=== PATIENT | male | born 1965 | race Caucasian/White ===

== ENCOUNTER 2017-03-21 13:52 | Emergency (ER) | payer OTHER ==
[~2017-03-21] VITALS: Ht 185.4 cm; Wt 102.1 kg
[~2017-03-21 13:52] MED LIST: CITALOPRAM HBR10 MG PO; CYCLOBENZAPRINE5 MG PO; METHOTREXATE2.5 MG PO; REMICADE100 MG/10 IV
[2017-03-21] MEDS ORDERED: LOSARTAN POTASS50 MG PO (14:01)
[2017-03-21] MEDS ORDERED: LIPITOR20 MG (14:02)
--- NOTE | 2017-03-21 14:48 | EKG ---
[facility] [address] [facility] [place] [address] Signed Normal sinus rhythm Normal ECG No previous ECGs available Confirmed by CHARISMA BREWER MD ([id number]) on 03/21/2017 2:48:45 PM Electronically Signed By: CHARISMA BREWER MD 03/21/17 1448 PATIENT NAME: DEVIN SWEENEY Electrocardiogram DATE OF : 63 PHYSICIAN: CHARISMA BREWER MD REPORT #: [id number] REPORT IS CONFIDENTIAL AND NOT TO BE RELEASED WITHOUT AUTHORIZATION
== END 2017-03-21 17:19 | disposition home or self-care (01) ==
LOC: ED 13:52
DX: R07.89 Other chest pain (principal); Z79.899 Other long term (current) drug therapy
CPT/HCPCS: 71020; 80053; 84484; 85025; 93005; 93010; 99284

== ENCOUNTER 2022-05-11 07:28 | Day surgery (SDC) | payer OTHER ==
[~2022-05-11] VITALS: Ht 185.4 cm; Wt 107.0 kg
[~2022-05-11 07:28] MED LIST changes: +CARVEDILOL6.25 MG PO; +CENTRUM ADULTS1 EACH PO; +CYMBALTA60 MG PO; +LIPITOR20 MG PO; +LOSARTAN POTASS50 MG PO; +XELJANZ XR11 MG PO
--- NOTE | 2022-05-11 09:58 | NUR ---
05/11/22 0958 Sheets,Chastity 0945 PT ARRIVED TO PACU ON 2L VIA NC, PT DENIES CONCERNS AND PLAN OF CARE DISCUSSED. 0954 PT RESTING WITH EYES CLOSED AND SMALL AMOUNT OF SNORING NOTED.
--- NOTE | 2022-05-12 07:22 | OR ---
[facility] [address] [place], [place] [address] Signed DATE OF OPERATION: 05/11/2022 SURGEON: Chichi Alba MD PREOPERATIVE DIAGNOSIS: Father with colon cancer in his early 60s and of the colon cancer age 66. POSTOPERATIVE DIAGNOSES: 1. Minimal sigmoid diverticulosis. 2. Minimal internal anal skin tags. PROCEDURE: Colonoscopy without biopsy. ESTIMATED BLOOD LOSS: None. INDICATIONS: Quincy is a 56-year-old gentleman, who happens to be a retired here in [place], [place]. He is returning for a followup colonoscopy. His father had developed colon cancer in his early 60s. His father actually of colon cancer at age of 66. Quincy came for his 1st colonoscopy back in 2008 at the age of 43. This was unremarkable. He had done well with Versed and fentanyl. We had asked him to return at age 49. He said life got busy and the COVID pandemic came through and he is just now getting back for his followup colonoscopy. He said he is feeling great now that he is retired. He actually goes to our local athletic club every day. He said he has no lower GI complaints. In the office, I gave Quincy a pamphlet on colonoscopy. We had reviewed the nature of that test. There is risk including, but not limited to gas bloating, crampy abdominal pain, bleeding, perforation requiring surgery, and missed diagnosis. We also reviewed the written instructions for a bowel prep line by line. He has done well with IV Versed and fentanyl in the past. He had expressed understanding and wished to proceed. PROCEDURE NOTE: Quincy was taken into our endoscopy suite and placed in the left lateral decubitus position. He was given IV sedation with 8 mg of Versed and 125 mcg of fentanyl. A digital rectal exam was performed and this was unremarkable. He really had no external hemorrhoids. He had good sphincter tone. There were no masses. We did not specifically evaluate his prostate gland. The adult colonoscope was then introduced and advanced all around into the cecum under direct visualization of the camera. Quincy takes Electronically Signed By: CHICHI ALBA MD 05/12/22 0722 PATIENT NAME: DEVIN SWEENEY OPERATIVE REPORT DATE OF : 63 REPORT #: [id number] PHYSICIAN: CHICHI ALBA MD PCP: MARKO INIGUEZ MD REPORT IS CONFIDENTIAL AND NOT TO BE RELEASED WITHOUT AUTHORIZATION [facility] [address], [place] [address] Signed carvedilol and we could see that his heart rate dropped into the 30s and came back up into the 60s several times. A couple of times during that procedure, he had blood pressures as high as in the 180s. He seemed to cover nicely when we took a pause during that procedure. We made it around to the cecum really without much difficulty. His prep was quite excellent. We could easily see the appendiceal orifice and the ileocecal valve. The scope was then slowly withdrawn. He had a few diverticula in the sigmoid colon. They were minimal to moderate in size, few in number, and scattered about. There were no polyps. The rectum was unremarkable. Upon retroflexion of the scope, we can see that he just has a couple of small internal anal skin tags. After this, the gas was suctioned out and the colonoscope removed. Quincy tolerated the procedure well overall. RECOMMENDATIONS: Quincy can return in 5 years for repeat colonoscopy due to his family history. Chichi Alba MD [facility] /[id number] cc: MD Marko Rizvi MD Copies: CHICHI ALBA MD, RUSSELL BARR MD ~ Electronically Signed By: CHICHI ALBA MD 05/12/22 0722 PATIENT NAME: DEVIN SWEENEY OPERATIVE REPORT DATE OF : 63 REPORT #: [id number] PHYSICIAN: CHICHI ALBA MD PCP: MARKO INIGUEZ MD REPORT IS CONFIDENTIAL AND NOT TO BE RELEASED WITHOUT AUTHORIZATION
== END 2022-05-11 10:30 | disposition home or self-care (01) ==
LOC: DS 07:28
PROVIDERS: ATTEND Colon & Rectal Surgery
PROC: 0DJD8ZZ Inspection of Lower Intestinal Tract, Via Natural or Artificial Opening Endoscopic (ICD-10-PCS; principal; 2022-05-11 09:00)
DX: Z12.11 Encounter for screening for malignant neoplasm of colon (principal); K57.30 Diverticulosis of large intestine without perforation or abscess without bleeding; K64.4 Residual hemorrhoidal skin tags; L40.50 Arthropathic psoriasis, unspecified; F41.9 Anxiety disorder, unspecified; I10 Essential (primary) hypertension; E78.00 Pure hypercholesterolemia, unspecified; Z80.0 Family history of malignant neoplasm of digestive organs; Z79.82 Long term (current) use of aspirin; Z79.899 Other long term (current) drug therapy
CPT/HCPCS: 99153; G0500; J2250; J3010